=== PATIENT | female | born 1955 | race Caucasian/White ===

== ENCOUNTER → 2017-04-04 | Outpatient (CLI) | payer BC ==
[~2017-04-04] MED LIST: ASPI-146 PO; BOSW5TAB PO; COMMODE 3-IN-11 MIS; CPMMACHINE; ENOX40IN SQ; FISHCAP4 PO; LEVO75TA3 PO; NORC5TAB PO; PREN29TA PO; VALS160T6 PO; WALKER WHEELS/F1 MIS
== END ==
LOC: CPRE 09:11
PROVIDERS: ATTEND Orthopaedic Surgery
DX: Z00.00 Encounter for general adult medical examination without abnormal findings (principal)

== ENCOUNTER 2017-04-16 05:39 | Inpatient (IN) | payer BC ==
[~2017-04-16] VITALS: Ht 162.6 cm; Wt 110.0 kg
[~2017-04-16 05:39] MED LIST changes: -ASPI-146 PO; -COMMODE 3-IN-11 MIS; -CPMMACHINE; -ENOX40IN SQ; -NORC5TAB PO; -WALKER WHEELS/F1 MIS
[2017-04-16] MEDS ORDERED: SODIUM CHLORID 0.9% 500 ML IV PRN (06:00)
[2017-04-16] MEDS ORDERED: INSULIN HUMAN REGULAR 1,000 UNITS/10 ML VIAL SQ PRN (06:00)
[2017-04-16] MEDS ORDERED: METOPROLOL TARTRATE 25 MG TAB PO PRN (06:00)
[2017-04-16] MEDS ORDERED: LACTATED RINGER'S 1000 ML IV PRN (06:00)
[2017-04-16] MEDS ORDERED: POVIDONE IODINE 5% (ANTISEPSIS KIT) 4 APPLICATIONS EACH NARE PRN (06:00)
[2017-04-16] MEDS ORDERED: CHLORHEXIDINE GLUCONATE 2 % 1 PACK (2 CLOTHS) TOPICAL PRN (06:00)
[2017-04-16] MEDS ORDERED: POVIDONE IODINE 7.5% SCRUB 118 ML BOTTLE TOPICAL SCH (06:15)
[2017-04-16] MEDS ORDERED: DEXAMETHASONE SOD PHOS 20 MG/5 ML VIAL IV SCH (06:15)
[2017-04-16] MEDS ORDERED: VANCOMYCIN 1000 MG/NS 250 ML (for <70 kg) IV SCH ×2 (06:15)
[2017-04-16] MEDS ORDERED: ACETAMINOPHEN 1000 MG/100 ML 100 ML IV ONE (06:59)
[2017-04-16] MEDS ORDERED: GENTAMICIN SULFATE 80 MG/2 ML VIAL ONE ×2 (07:06)
--- NOTE | 2017-04-16 07:11 | HHI.FF ---
Face to Face Verification Diagnosis: (1) Primary localized osteoarthrosis, lower leg (2) Status post total knee replacement, left Physical Therapy Gait training, Transfer training, bed to chair Knee: Total knee Left LE Weight Bearing: WB as tolerated Left LE Range of Motion: Active ROM Nursing Nursing: Megan teaching Dressing Changes: Do not change dressing Additional Instructions first dressing change in the office I have seen patient Rosa Barriga on 04/16/17. My clinical findings support the need for the requested home health care services because: Limited ability to care for self High risk of falls I certify that my clinical findings support that this patient is homebound because: Post-op weakness Unsteady gait/balance Jono Capone Apr 16, 2017 07:11
--- NOTE | 2017-04-16 07:11 | HHI.DCPOC ---
Discharge Care Plan Diagnosis: (1) Primary localized osteoarthrosis, lower leg (2) Status post total knee replacement, left Your Health Problems Are: Difficulty with ADL Goals to Promote Your Health * To prevent worsening of your condition and complications * To maintain your health at the optimal level Directions to Meet Your Goals Take your medications as prescribed Follow your dietary instruction Follow activity as directed Keep your appointments as scheduled Take your immunizations and boosters as scheduled If your symptoms worsen call your PCP, if no PCP go to Urgent Care Center or Emergency Room Smoking is Dangerous to Your Health. Avoid second hand smoke Call the 24-hour hour crisis hotline for domestic abuse at Jono Capone Apr 16, 2017 07:11
[2017-04-16] MEDS ORDERED: WALKER WHEELS/F1 MIS (07:13)
[2017-04-16] MEDS ORDERED: COMMODE 3-IN-11 MIS (07:13)
[2017-04-16] MEDS ORDERED: CPMMACHINE (07:13)
[2017-04-16] MEDS ORDERED: BUPIVACAINE LIPOSOME PF 1.3% 20 ML VIAL ONE (07:26)
[2017-04-16] MEDS: ceFAZolin 2 GM PREMIX 50 ML IV SCH (08:00)
[2017-04-16] MEDS ORDERED: ROPIVACAINE PERI-ARTICULAR INJECTION. P-ARTICULR SCH ×5 (08:30)
[2017-04-16] MEDS ORDERED: TRANEXAMIC ACID INJ 905 MG in SODIUM CHLORIDE 0.9% INJ 100 ML IV SCH (08:30)
--- NOTE | 2017-04-16 10:20 | PD.OP ---
cc: Romero Carroll MD Operative Report Date of Surgery: Apr 16, 2017 Preoperative Diagnosis: Left knee severe osteoarthritis Postoperative Diagnosis: Same Procedure: Left total knee arthroplasty Anesthesia: Gen. and adductor canal block Surgeon: Romero Carroll Director Enterprise Data Architecture(s): GIRISH Clifton The surgical procedure was assisted by my Advanced Registered Nurse Practitioner. My PEACH GROWER presence was necessary throughout this case for the manipulation and positioning of the surgical extremity. My PEACH GROWER was assisting me throughout the duration of this procedure. The skill set of an Advance Registered Nurse Practitioner was medically necessary to complete this procedure. During the surgical case, the computer systems technician was working at the back table and the Advance Registered Nurse Practitioner was directly assisting me. Operation and Findings: IMPLANTS: DePuy Attune: Patella: size 32. Femur, posterior stabilized size 5 narrow. Tibia, rotating platform size 4. Tibial insert, rotating platform, posterior stabilized size 5 mm thickness. ESTIMATED BLOOD LOSS: 125 cc TOURNIQUET TIME: 45 minutes at 250 mmHg pressure. JUSTIFICATION FOR PROCEDURE: The patient has end-stage osteoarthritis to the knee. There is an attached conservative measures pathway form in the chart that describes the nonoperative measures that were undertaken prior to consideration of surgical management. The patient understood the risks and benefits of surgical management. See my office notes for further details PROCEDURE: The patient was brought back to the operative theatre. Adequate anesthesia was obtained. The patient received intravenous vancomycin and Ancef. The lower extremity was prepped and draped in the usual sterile fashion.The leg was exsanguinated, the tourniquet was raised. A standard anterior incision was performed followed by medial parapatellar arthrotomy was performed. End-stage arthritis was identified. Osteotomy of the patella was performed. We drilled holes for the patella. We trialed the patella component. We placed an intramedullary guide into the distal femur. We ultimately resected 14 mm off of the distal femur in 5 degrees of valgus. The remnants of the ACL and PCL were resected. Osteotomy of the proximal tibia was performed, resecting 5 mm off of the medial side. This was done with 3 degrees of posterior slope using an extramedullary guide. The distal end of the guide was placed in the mid aspect of the ankle. The femur was sized, and four chamfer cuts were completed in 3 of external rotation. We then cut the central box in the distal femur to replace the PCL. We resected the remnants of the menisci and removed osteophytes off of the femur and tibia. We then trialed the knee. We punched the tibia for the keel, and then used standard technique to cement in components. Excess cement was removed. We trialed the knee again and the final polyethylene thickness was chosen to provide extension to 0 degrees, and flexion of 140 degrees to gravity. The ligaments were appropriately balanced. Lateral release was necessary to obtain excellent patellofemoral tracking. The tourniquet was released and adequate hemostasis was obtained. An intra- articular injection of a ropivacaine cocktail was injected. The posterior knee was inspected for excess cement, which was removed. The final polyethylene was put into position after thorough irrigation. We then closed deep fascia with a #2 Stratafix followed by skin with 2-0 Vicryl followed by elvia. Postop plan is to weight-bear as tolerated. DVT prophylaxis will be performed with Keily, YVON seo, early mobilization, and Lovenox followed by aspirin. Romero Carroll MD Apr 16, 2017 10:20
[2017-04-16] MEDS ORDERED: NORC5TAB PO (10:22)
[2017-04-16] MEDS ORDERED: ENOX40IN SQ (10:22)
[2017-04-16] MEDS ORDERED: ASPI-146 PO (10:22)
[2017-04-16] MEDS ORDERED: diphenhydrAMINE HCL 50 MG/ML VIAL IV PUSH PRN (10:30)
[2017-04-16] MEDS ORDERED: ALUMINUM/MAGNESIUM/SIMETH 30 ML CUP PO PRN (10:30)
[2017-04-16] MEDS ORDERED: BISACODYL 10 MG SUPP RECTAL PRN (10:30)
[2017-04-16] MEDS ORDERED: ACETAMINOPHEN/HYDROcodone 325 MG/5 MG TAB PO PRN (10:30)
[2017-04-16] MEDS ORDERED: MORPHINE SULFATE 4 MG/ML INJ IV PUSH PRN (10:30)
[2017-04-16] MEDS ORDERED: ONDANSETRON HCL 4 MG/2 ML VIAL IVP PRN (10:30)
[2017-04-16] MEDS ORDERED: MAGNESIUM HYDROXIDE SUSP 30 ML CUP PO PRN (10:30)
[2017-04-16] MEDS ORDERED: NALOXONE HCL 0.4 MG/ML AMP IV PUSH PRN (10:30)
[2017-04-16] MEDS ORDERED: ZOLPIDEM TARTRATE 5 MG TAB PO PRN (10:30)
[2017-04-16] MEDS ORDERED: Post-op Orders (for Pharmacy) XX ONE (10:45)
[2017-04-16] MEDS: SODIUM CHLOR 0.9% 1000 ML INJ 1,000 ML IV SCH ×2 (10:54→20:16)
[2017-04-16] MEDS ORDERED: *morphine SULFATE 8 MG/ML PERIprocedure ONLY ONE ×2 (11:04→11:25)
[2017-04-16] MEDS ORDERED: TRANEXAMIC ACID INJ 900 MG in SODIUM CHLORIDE 0.9% INJ 100 ML IV SCH (11:30)
--- NOTE | 2017-04-16 11:48 | RADRPT ---
EXAM DATE/TIME: 04/16/2017 11:23 [facility] COMPARISON: No previous studies available for comparison. INDICATIONS : Post op left knee surgery MEDICAL HISTORY : None. SURGICAL HISTORY : None. ENCOUNTER: Initial ACUITY: 1 day PAIN SCORE: 5/10 LOCATION: Left knee FINDINGS: Postsurgical features of left knee arthroplasty. Arthroplasty components are in anatomic alignment. N o significant acute bony fracture. Immediate postsurgical soft tissue features. CONCLUSION: 1. Status post left knee arthroplasty in anatomic alignment without significant acute bony fracture. Teofilo Sue MD on April 16, 2017 at 11:46 Board Certified Radiologist. This report was verified electronically.
[2017-04-16] MEDS ORDERED: DO NOT ADM ANY ANTICOAGULANT DRUGS PRN (12:30)
--- NOTE | 2017-04-16 12:37 | PD.CONS ---
[facility] By Reason for Consult medical management. Primary Care Physician Non-Staff Diagnoses: History of Present Illness patient is a 61 y/o female with history of osteoarthritis, hypertension, hypothyroidism, breast and uterine cancer who underwent left total knee arthroplasty today. at the time of my evaluation she was resting comfortably with no acute distress. pain was minimal to mild. she denies any chest pain, sob , nausea or dizziness. Review of Systems Constitutional: DENIES: Fever, Weight loss, Chills, Night Sweats Eyes: DENIES: Blurred vision, Diplopia, Vision loss, Double Vision Ears, nose, mouth, throat: DENIES: Tinnitus, Vertigo, Throat pain, Epistaxis Respiratory: DENIES: Apneas, Cough, Snoring, Wheezing, Hemoptysis, Sputum production, Shortness of breath Cardiovascular: DENIES: Chest pain, Palpitations, Syncope, Dyspnea on Exertion , PND, Lower Extremity Edema, Orthopnea, Claudication Gastrointestinal: DENIES: Abdominal pain, Black stools, Bloody stools, Constipation, Diarrhea, Nausea, Vomiting, Difficulty Swallowing, Anorexia Genitourinary: DENIES: Urinary frequency, Urgency, Hematuria, Dysuria Musculoskeletal: COMPLAINS OF: Joint pain (left knee.), DENIES: Muscle aches, Stiffness, Joint Swelling Integumentary: DENIES: Rash Neurologic: DENIES: Abnormal gait, Headache, Localized weakness, Paresthesias, Seizures, Speech Problems, Tremor, Poor Balance Psychiatric: DENIES: Anxiety, Confusion, Mood changes, Depression, Hallucinations, Agitation, Suicidal Ideation, Homicidal Ideation, Delusions Past Family Social History Allergies: Coded Allergies: niacin (Verified Allergy, Severe, RASH, 04/04/17) Past Medical History osteoarthritis hypertension hypothyroidism breast/uterine cancer Past Surgical History breast lumpectomy hysterectomy Reported Medications Valsartan/HCTZ levothyroxine Active Ordered Medications Inpatient Medications Acetaminophen/ Hydrocodone Bitart ([place] 5-325 Mg) 2 tab Q4H PRN PO PAIN SCALE 5 TO 10; Start 04/16/17 at 10:30; Status UNV Al Hydrox/Mg Hydrox/Simethicone (Mag-Al Plus Susp Liq) 30 ml Q6H PRN PO INDIGESTION; Start 04/16/17 at 10:30 Bisacodyl (Dulcolax Supp) 10 mg DAILY PRN [place] CONSTIPATION; Start 04/16/17 at 10:30; Status UNV Cefazolin Sodium 1000 mg/Sodium Chloride 100 ml @ 200 mls/hr Q6H IV ; Start at 10:30; Stop 04/16/17 at 22:59; Status UNV Cefazolin Sodium/ Dextrose 50 ml @ 100 mls/hr [employer]PER[employer] IV Last administered on 04/16/17t 08:00; Start 04/16/17 at 06:15; Stop 04/19/17 at 06:14 Chlorhexidine Gluconate (Chlorhexidine 2% Cloth) 3 pack [employer]PER[employer] PRN TOPICAL SEE LABEL COMMENTS Last administered on 04/16/17 05:30; Start 04/16/17 at 06: 00; Stop 04/19/17 at 05:59 Dexamethasone Sodium Phosphate (Decadron Inj) 10 mg ONCE ONCE IV ; Start 04/17 at 07:45; Stop 04/17/17 at 07:46 Diphenhydramine HCl (Benadryl Inj) 25 mg Q6H PRN IV PUSH ITCHING; Start at 10:30; Status UNV Docusate Sodium (Colace) 100 mg BID PO ; Start 04/17/17 at 21:00 Enoxaparin Sodium (Lovenox Inj) 40 mg Q24H SQ ; Start 04/16/17 at 10:30; Stop 04/25/17 at 10:31; Status UNV Insulin Human Regular (NovoLIN R INJ) See Protocol Table ... [employer]ING SUPERVISOR PRN SQ SEE PROTOCOL TABLE; Start 04/16/17 at 06:00; Stop 04/19/17 at 05:59 Lactated Ringer's 1,000 ml @ 30 mls/hr Q24H PRN IV SEE LABEL COMMENTS; Start 04/16/17 at 06:00; Stop 04/19/17 at 05:59 Levothyroxine Sodium (Synthroid) 75 mcg DAILY@0600 PO ; Start 04/17/17 at 06:00 Magnesium Hydroxide (Milk Of Magnesia Liq) 30 ml DAILY PRN PO CONSTIPATION; Start 04/16/17 at 10:30; Status UNV Metoprolol Tartrate (Lopressor) 25 mg [employer]PER[employer]OR PRN PO SEE LABEL COMMENTS; Start 04/16/17 at 06:00; Stop 04/19/17 at 05:59 Miscellaneous Information ALL NURSING DEPARTME... UNSCH PRN .XX SEE LABEL COMMENTS; Start 04/16/17 at 12:30; Stop 04/17/17 at 12:29 Miscellaneous Information (Post-op Orders (for Pharmacy)) STAT ONCE XX ; Start 04/16/17 at 10:30; Stop 04/16/17 at 10:31; Status UNV Morphine Sulfate (Morphine Inj) 2 mg Q3H PRN IV PUSH pain greater than 5; Start 04/16/17 at 10:30 Multivitamins/ Minerals Therapeutic (Theragran M Tab) 1 tab BID PO ; Start at 21:00; Stop 06/16/17 at 20:59 Naloxone HCl (Narcan Inj) 0.4 mg UNSCH PRN IV PUSH RESPIRATORY RATE LESS THAN 10; Start 04/16/17 at 10:30 Non-Formulary Medication 1 tab DAILY PO ; Start 04/17/17 at 09:00; Status UNV Ondansetron HCl (Zofran Inj) 4 mg Q6H PRN IVP NAUSEA OR VOMITING; Start at 10:30 Povidone Iodine (Betadine 5% Antisepsis Kit) 1 applic [employer]PER[employer] PRN EACH NARE SEE LABEL COMMENTS Last administered on 04/16/17 07:30; Start 04/16/17 at 06: 00; Stop 04/19/17 at 05:59 Povidone Iodine (Betadine 7.5% Scrub) 1 applic ONCE TOPICAL ; Start 04/16/17 at 06:15; Stop 04/19/17 at 06:14 Ropivacaine 24.63 ml/Ketorolac Tromethamine 30 mg/Epinephrine HCl 0.5 mg/ Clonidine 80 mcg/ Sodium Chloride 100 ml @ 200 mls/hr ONCE P-ARTICULR Last administered on 04/16/17 09:11; Start 04/16/17 at 08:30; Stop 04/16/17 at 14 :30 Sodium Chloride 1,000 ml @ 100 mls/hr Q10H IV ; Start 04/16/17 at 10:16 Tranexamic Acid 900 mg/Sodium Chloride 109 ml @ 200 mls/hr UNSCH IV Last administered on 04/16/17 11:30; Start 04/16/17 at 11:30; Stop 04/16/17 at 13 :30 Tranexamic Acid 905 mg/Sodium Chloride 109.05 ml @ 200 mls/ hr ONCE IV Last administered on 04/16/17 08:33; Start 04/16/17 at 08:30; Stop 04/16/17 at 14 :30 Vancomycin HCl 1000 mg/Sodium Chloride 250 ml @ 250 mls/hr [employer] IV Last administered on 04/16/17 08:33; Start 04/16/17 at 06:15; Stop 04/19/17 at 06 :14 Zolpidem Tartrate (Ambien) 5 mg HS PRN PO SLEEP; Start 04/16/17 at 10:30 Family History not relevant to this consult. Social History quit smoking years ago- drinks occasionally. Physical Exam Vital Signs Vital Signs Date Time Temp Pulse Resp B/P (MAP) Pulse Ox O2 Delivery O2 Flow Rate FiO2 04/16/17 07:52 98.3 66 20 149/70 (96) 98 Physical Exam GENERAL: This is a well-nourished, well-developed patient, in no apparent distress. SKIN: No rashes, ecchymoses or lesions. Cool and dry. HEAD: Atraumatic. Normocephalic. No temporal or scalp tenderness. EYES: Pupils equal round and reactive. Extraocular motions intact. No scleral icterus. No injection or drainage. ENT: Nose without bleeding, purulent drainage or septal hematoma. Throat without erythema, tonsillar hypertrophy or exudate. Uvula midline. Airway patent. NECK: Trachea midline. No JVD or lymphadenopathy. Supple, nontender, no meningeal signs. CARDIOVASCULAR: Regular rate and rhythm without murmurs, gallops, or rubs. RESPIRATORY: Clear to auscultation. Breath sounds equal bilaterally. No wheezes , rales, or rhonchi. GASTROINTESTINAL: Abdomen soft, non-tender, nondistended. No hepato-splenomegaly , or palpable masses. No guarding. MUSCULOSKELETAL: left knee covered with clean dressing. NEUROLOGICAL: Awake and alert. Cranial nerves II through XII intact. Motor and sensory grossly within normal limits. Five out of 5 muscle strength in all muscle groups. Normal speech. Imaging Last Impressions Knee X-Ray 04/16/17 1016 Signed Impressions: Service Date/Time: Sunday, April 16, 2017 11:23 - CONCLUSION: 1. Status post left knee arthroplasty in anatomic alignment without significant acute bony fracture. Teofilo Sue MD Assessment and Plan Assessment and Plan A/P - osteoarthritis of the left knee- s/p left total knee arthroplasty continue with pain control and rehab efforts- management per ortho. -hypertension; resume home meds- will monitor and adjust the regimen as needed. -hypothyroidism; resume levothyroxine -history of breast cancer- -DVT prophylaxis with subq Lovenox- per ortho. thank you for the consult. Discussed Condition With the patient. Chuck Hodges MD Apr 16, 2017 12:37
[2017-04-16 14:38] VITALS: BP 131/63; PULSE 92; RESP 20; TEMP 97.2; O2SAT 95
[2017-04-16 16:00] VITALS: BP 124/74; PULSE 94; RESP 20; TEMP 96.5; O2SAT 94
[2017-04-16 20:20] VITALS: BP 131/69; PULSE 84; RESP 17; TEMP 96.3; O2SAT 96
[2017-04-16] MEDS: ACETAMINOPHEN/HYDROcodone 325 MG/5 MG TAB PO PRN (20:42)
[2017-04-17 00:24] VITALS: BP 105/55; PULSE 77; RESP 17; TEMP 96.6; O2SAT 96
[2017-04-17 04:37] VITALS: BP 114/55; PULSE 75; RESP 17; TEMP 96.8; O2SAT 98
[2017-04-17] MEDS: SODIUM CHLOR 0.9% 1000 ML INJ 1,000 ML IV SCH ×2 (05:36→09:31)
[2017-04-17] MEDS ORDERED: LEVOTHYROXINE SODIUM 75 MCG TAB PO SCH (06:00)
[2017-04-17] MEDS ORDERED: DEXAMETHASONE SOD PHOS 20 MG/5 ML VIAL IV ONE (07:45)
[2017-04-17 08:00] VITALS: BP 125/62; PULSE 97; RESP 16; TEMP 97.1; O2SAT 98
[2017-04-17] MEDS ORDERED: VALSARTAN 160 MG TAB PO SCH (09:00)
[2017-04-17] MEDS ORDERED: HYDROCHLOROTHIAZIDE 25 MG TAB PO SCH (09:00)
[2017-04-17] MEDS ORDERED: NON-FORMULARY DRUG (Valsartan-Hydrochlorothiazide 1 TAB) PO SCH (09:00)
[2017-04-17 09:21] LABS: HEMATOCRIT 31.1 % (35.0-46.0); MEAN CORPUSCULAR HEMOGLOBIN 30.8 PG (27.0-34.0); MEAN CORPUSCULAR HGB CONC 33.8 % (32.0-36.0); PLATELET COUNT 214 TH/MM3 (150-450); RED BLOOD COUNT 3.42 MIL/MM3 (4.00-5.30); RED CELL DISTRIBUTION WIDTH 13.3 % (11.6-17.2); REVIEW FLAG FINAL; WHITE BLOOD COUNT 9.6 TH/MM3 (4.0-11.0)
[2017-04-17] MEDS: ACETAMINOPHEN/HYDROcodone 325 MG/5 MG TAB PO PRN ×3 (09:28→16:44)
[2017-04-17] MEDS ORDERED: ENOXAPARIN SODIUM 40 MG/0.4 ML SYRINGE SQ SCH (10:00)
[2017-04-17] MEDS ORDERED: MAGNESIUM HYDROXIDE SUSP 30 ML CUP PO SCH (10:00)
[2017-04-17] MEDS ORDERED: POLYETHYLENE GLYCOL 17 GM PKG PO SCH (10:00)
--- NOTE | 2017-04-17 13:03 | PD.ORT.PN ---
Subjective Post Op Day #: 1 Subjective Remarks Patient is OOB in chair eating lunch. Patient reports minimal pain to the left knee. Patient states she wants to go home today with home health. Objective Vitals Vital Signs Date Time Temp Pulse Resp B/P (MAP) Pulse Ox O2 Delivery O2 Flow Rate FiO2 04/17/17 08:00 97.1 97 16 125/62 (83) 98 04/17/17 04:37 96.8 75 17 114/55 (74) 98 04/17/17 00:24 96.6 77 17 105/55 (72) 96 04/16/17 20:20 96.3 84 17 131/69 (89) 96 04/16/17 16:00 96.5 94 20 124/74 (91) 94 04/16/17 14:38 97.2 92 20 131/63 (85) 95 04/16/17 13:30 96.3 90 12 134/61 (85) 97 Room Air 04/16/17 13:00 97 13 138/64 (88) 98 Room Air I/O 04/16/17 04/16/17 04/16/17 04/17/17 04/17/17 04/17/17 07:00 15:00 23:00 07:00 15:00 23:00 Intake Total 1519 ml 340 ml 340 ml Output Total 3200 ml Balance -1681 ml 340 ml 340 ml Intake Oral 75 ml 240 ml 240 ml IV Total 1444 ml 100 ml 100 ml Output Estimated Blood Loss 200 ml Other 3000 ml # Voids 0 1 2 # Bowel Movements 0 0 Result Diagram: 04/17/17 0847 Procedures Left TKA Objective Remarks The patient's dressing was changed today as it was partially saturated with serosanguineous drainage. Dermabond mesh intact and incision well approximated. No redness or s/s of infection. EHL/TA/G intact. 2+ pedal pulse. + SILT. Calf is soft and nontender. Assessment & Plan Ortho Post Op Day #: 1 Problem List: Assessment and Plan POD #1: Left TKA 1. Lovenox followed by ASA for DVT prophylaxis 2. WBAT LLE 3. Ice to the left knee PRN 4. Stable for discharge home with home health today 5. F/U in the office with Dr. Carroll or GIRISH Wu as previously scheduled. Jono Capone Apr 17, 2017 13:03
[2017-04-17 13:11] VITALS: BP 128/67; PULSE 86; RESP 16; TEMP 97.1; O2SAT 97
--- NOTE | 2017-04-17 15:31 | HHI.PR ---
Subjective Remarks feels well. went to PT class and did fine. No CP/SOB/N/V Objective Vitals Vital Signs Date Time Temp Pulse Resp B/P (MAP) Pulse Ox O2 Delivery O2 Flow Rate FiO2 04/17/17 13:11 97.1 86 16 128/67 (87) 97 04/17/17 08:00 97.1 97 16 125/62 (83) 98 04/17/17 04:37 96.8 75 17 114/55 (74) 98 04/17/17 00:24 96.6 77 17 105/55 (72) 96 04/16/17 20:20 96.3 84 17 131/69 (89) 96 04/16/17 16:00 96.5 94 20 124/74 (91) 94 I/O 04/16/17 04/16/17 04/16/17 04/17/17 04/17/17 04/17/17 07:00 15:00 23:00 07:00 15:00 23:00 Intake Total 1519 ml 340 ml 340 ml Output Total 3200 ml Balance -1681 ml 340 ml 340 ml Intake Oral 75 ml 240 ml 240 ml IV Total 1444 ml 100 ml 100 ml Output Estimated Blood Loss 200 ml Other 3000 ml # Voids 0 1 2 # Bowel Movements 0 0 Result Diagram: 04/17/17 0847 Imaging Last Impressions Knee X-Ray 04/16/17 1016 Signed Impressions: Service Date/Time: Sunday, April 16, 2017 11:23 - CONCLUSION: 1. Status post left knee arthroplasty in anatomic alignment without significant acute bony fracture. Teofilo Sue MD Objective Remarks GENERAL: laying in bed comfortably CARDIOVASCULAR: Regular rate and rhythm without murmurs RESPIRATORY: Clear to auscultation. Breath sounds equal bilaterally. No wheezes GASTROINTESTINAL: Abdomen soft, non-tender, nondistended. No guarding. MUSCULOSKELETAL: left knee covered with clean dressing. NEUROLOGICAL: Awake and alert. Normal speech. A/P Assessment and Plan - osteoarthritis of the left knee- s/p left total knee arthroplasty pod 1 pain control, anticoagulation and rehab efforts per ortho. -hypertension: on home meds- will monitor and adjust the regimen as needed. -hypothyroidism: on levothyroxine -DVT prophylaxis with subq Lovenox- per ortho. Discharge Planning per primary team [place] Sutherland MD Apr 17, 2017 15:31
[2017-04-17] MEDS ORDERED: MULTIVITAMINS/MINERALS THERAPEUTIC TAB PO SCH (21:00)
[2017-04-17] MEDS ORDERED: DOCUSATE SODIUM 100 MG CAP PO SCH (21:00)
--- NOTE | 2017-04-18 12:40 | HHI.DS ---
Discharge Summary Admission Date Apr 16, 2017 at 05:39 Discharge Date: Apr 17, 2017 Admitting Diagnosis Primary localized OA, lower leg Status post total knee replacement, left Diagnosis: (1) Primary localized osteoarthrosis, lower leg Diagnosis: Principal ICD Codes: M17.10 - Unilateral primary osteoarthritis, unspecified knee (2) Status post total knee replacement, left Diagnosis: Principal ICD Codes: Z96.652 - Presence of left artificial knee joint Procedures Left TKA Brief History This is a 61 year old female patient with severe OA of the left knee CBC/BMP: 04/17/17 0847 Significant Findings Laboratory Tests Test 04/17/17 08:47 Red Blood Count 3.42 MIL/MM3 (4.00-5.30) Hemoglobin 10.5 GM/DL (11.6-15.3) Hematocrit 31.1 % (35.0-46.0) PE at Discharge The patient's dressing was changed today as it was partially saturated with serosanguineous drainage. Dermabond mesh intact and incision well approximated. No redness or s/s of infection. EHL/TA/G intact. 2+ pedal pulse. + SILT. Calf is soft and nontender. Hospital Course The patient was admitted to the hospital for severe OA of the left knee to have a left TKA. The patient's surgery went well without complication. The patient is WBAT. The patient is on a regular diet. The patient is on Lovenox followed by ASA for DVT prophylaxis. The patient was discharged home with home health and will f/u in the office with Dr. Carroll or GIRISH Wu as previously scheduled. Pt Condition on Discharge: Stable Discharge Disposition: Disch w/ Home Health Serv Discharge Instructions Diet Instructions: As Tolerated, No Restrictions Activities You Can Perform: Weight Bearing as Ashley Activities to Avoid: Strenuous Activity Follow up Referrals: Orthopedics with Romero Carroll MD New Medications: Aspirin (Ecotrin Regular Strength) 325 Mg Tabdr 325 MG PO DAILY for Prevent Blood Clot, #30 TAB 0 Refills Start Aspirin after Lovenox is completed. Commode 3-in-1 (Commode 3-in-1) 1 Mis Mis EA .ROUTE DIRECTED, #1 0 Refills CPM-Continuous Passive Motion Machine (CPM-Continuous Passive Motion Machine) 1 Ea Device EA .ROUTE DIRECTED, #1 0 Refills Enoxaparin Inj (Enoxaparin Inj) 40 Mg/0.4 Ml Syr 40 MG SQ DAILY for Blood Clot Prevention, #10 SYRINGE 0 Refills Start Aspirin after Lovenox is completed. Hydrocodone-Acetaminophen ([place]) 5 Mg-325 Mg Tab 1-2 TAB PO Q4H PRN for PAIN, #60 TAB 0 Refills Walker with Front Wheels (Walker with Front Wheels) 1 Mis Mis EA .ROUTE DIRECTED, #1 0 Refills Continued Medications: Levothyroxine (Levothyroxine) 75 Mcg Tab 75 MCG PO DAILY for Thyroid, #30 TAB 0 Refills Vit-Iron Carbonyl ( Plus Iron 29-1 mg) 29 Mg Iron-1 Mg Tab 1 TAB PO DAILY for Nutritional Supplement, #30 TAB 0 Refills Valsartan-Hydrochlorothiazide (Valsartan-Hydrochlorothiazide) 160-25 Mg Tab 1 TAB PO DAILY for Blood Pressure Management, #30 TAB 0 Refills Discontinued Medications: Fish Oil-Cholecalciferol (Fish Oil + D3) 1,200-1,000 Mg-Unit Cap 1 CAP PO DAILY for Nutritional Supplement, #30 CAP 0 Refills Glucosamine/D3/Boswellia Dana (Osteo Bi-Flex Caplet) 1,500 Mg-400 Unit-100 Mg Tablet 1 CAP PO DAILY Jono Capone Apr 18, 2017 12:40
== END 2017-04-17 16:54 | disposition home health service (06) | DRG 470 ==
LOC: HSDI 05:39 → EDUNIT# 08:30 → N06A 14:15
PROVIDERS: ADMIT Orthopaedic Surgery; ATTEND Orthopaedic Surgery
PROC: 0SRD0J9 Replacement of Left Knee Joint with Synthetic Substitute, Cemented, Open Approach (ICD-10-PCS; principal; 2017-04-16 08:15)
DX: M17.12 Unilateral primary osteoarthritis, left knee (principal); I10 Essential (primary) hypertension; E03.9 Hypothyroidism, unspecified; E66.9 Obesity, unspecified; Z68.41 Body mass index [BMI] 40.0-44.9, adult; Z85.42 Personal history of malignant neoplasm of other parts of uterus; Z85.3 Personal history of malignant neoplasm of breast; Z87.891 Personal history of nicotine dependence
CPT/HCPCS: 73560; 85027; C9290; J0131; J0690; J0735; J1100; J1580; J1650; J1885; J2270; J2795; J3370; J7030; J7050; L1830